=== PATIENT | male | born 1990 | race Caucasian/White ===

== ENCOUNTER 2017-02-22 11:55 | Emergency (ER) | payer OTHER ==
[2017-02-22 12:01] VITALS: BP 118/59; PULSE 90; RESP 20; TEMP 98.3
--- NOTE | 2017-02-22 12:50 | ED ---
Anxiety HPI - General Source: patient, RN notes reviewed Mode of arrival: EMS Limitations: no limitations <Dav Caruso - Last Filed: 02/22/17 14:01> <Cooper Joshua - Last Filed: 02/24/17 07:57> - General Chief Complaint: Anxiety Stated Complaint: Anxious Time Seen by Provider: 02/22/17 12:08 - History of Present Illness Initial Comments: 26-year-old male present emergency department with chief complaint of anxiety and agitation. 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 Patient states that he takes Seroquel and states it causes him to be very drowsy and states that he cannot stay awake for a while. He states that he fell asleep on the car ride but then woke up and he knew he was noted to have EMS fire department please around him. He states she's unsure what happened. Patient states that he remembers also been car and that he does abnormal things. Patient has no physical complaints at this time denies headache, dizziness, confusion, nausea, vomiting diarrhea constipation. Patient mother is here with patient states that he is I am drugs currently. Patient is very anxious the room. Patient states he has a history of heroin abuse denies any recent drug use. (Dav Caruso) - Related Data Home Medications: Home Medications Medication Instructions Recorded Confirmed Naltrexone HCl [Revia] 50 mg PO HS 02/22/17 02/22/17 PARoxetine [Paxil] 20 mg PO DAILY 02/22/17 02/22/17 Prazosin HCl 1 mg PO HS 02/22/17 02/22/17 QUEtiapine [SEROquel] 200 mg PO HS 02/22/17 02/22/17 Allergies/Adverse Reactions: Allergies Allergy/AdvReac Type Severity Reaction Status Date / Time No Known Allergies Allergy Verified 02/22/17 12:01 Review of Systems ROS Other: All systems not noted in ROS Statement are negative. <Dav Caruso - Last Filed: 02/22/17 14:01> ROS Other: All systems not noted in ROS Statement are negative. <Cooper Joshua - Last Filed: 02/24/17 07:57> ROS Statement: Those systems with pertinent positive or pertinent negative responses have been documented in the HPI. Past Medical History Past Medical History: No Reported History History of Any Multi-Drug Resistant Organisms: None Reported Past Surgical History: No Surgical Hx Reported Past Psychological History: Anxiety, PTSD Smoking Status: Current every day smoker Past Alcohol Use History: None Reported Past Drug Use History: Marijuana <Dav Caruso - Last Filed: 02/22/17 14:01> General Exam Limitations: no limitations General appearance: alert, in no apparent distress, anxious Head exam: Present: atraumatic, normocephalic, normal inspection Eye exam: Present: normal appearance, PERRL, EOMI. Absent: scleral icterus, conjunctival injection, periorbital swelling ENT exam: Present: normal exam, normal oropharynx, mucous membranes moist, TM's normal bilaterally, normal external ear exam Neck exam: Present: normal inspection, full ROM. Absent: tenderness, meningismus, lymphadenopathy Respiratory exam: Present: normal lung sounds bilaterally. Absent: respiratory distress, wheezes, rales, rhonchi, stridor Cardiovascular Exam: Present: regular rate, normal rhythm, normal heart sounds. Absent: systolic murmur, diastolic murmur, rubs, gallop, clicks GI/Abdominal exam: Present: soft, normal bowel sounds. Absent: distended, tenderness, guarding, rebound, rigid Neurological exam: Present: alert, oriented X3, CN II-XII intact Psychiatric exam: Present: anxious Skin exam: Present: warm, dry, intact, normal color. Absent: rash <Dav Caruso - Last Filed: 02/22/17 14:01> Medical Decision Making <Dav Caruso - Last Filed: 02/22/17 14:01> <Cooper Joshua - Last Filed: 02/24/17 07:57> - Medical Decision Making 26-year-old male present emergency department via EMS for agitation anxiety. Patient is alert and wants drugs at this time. Patient mother is here fluids such as possibility of the patient. Patient was evaluated by EPS and they suggest rehab again forearm. Patient is not suicidal or homicidal. Patient be discharged return parameters discussed. (Dav Caruso) 26-year-old male presenting with agitation. Patient's urine drug screen is positive. He was observed in the emergency department and evaluated by EPS. There is no suicidal or homicidal ideation. Patient will be discharged home, given rehab and primary care follow-up. Patient's mother is at bedside and is agreeable. (Cooper Joshua) - Lab Data Lab Results 02/22/17 Range/Units 12:46 Urine Opiates Screen Detected H (NotDetected) Ur Oxycodone Screen Not Detected (NotDetected) Urine Methadone Screen Not Detected (NotDetected) Ur Propoxyphene Screen Not Detected (NotDetected) Ur Barbiturates Screen Not Detected (NotDetected) U Tricyclic Antidepress Not Detected (NotDetected) Ur Phencyclidine Scrn Not Detected (NotDetected) Ur Amphetamines Screen Not Detected (NotDetected) U Methamphetamines Scrn Not Detected (NotDetected) U Benzodiazepines Scrn Not Detected (NotDetected) Urine Cocaine Screen Detected H (NotDetected) U Marijuana (THC) Screen Detected H (NotDetected) Disposition Time of Disposition: 14:02 <Dav Caruso - Last Filed: 02/22/17 14:01> <Cooper Joshua - Last Filed: 02/24/17 07:57> Clinical Impression: Polysubstance abuse, Acute anxiety Disposition: HOME SELF-CARE Condition: Stable Instructions: Polysubstance Abuse (ED) Additional Instructions: Please return to the Emergency Department if symptoms worsen or any other concerns. Referrals: Leodan Pederson MD [Primary Care Provider] - 1-2 days
== END 2017-02-22 14:09 | disposition home or self-care (01) ==
LOC: EC 11:55
DX: F19.10 Other psychoactive substance abuse, uncomplicated (principal); F41.9 Anxiety disorder, unspecified; F43.10 Post-traumatic stress disorder, unspecified; Z87.898 Personal history of other specified conditions; Z79.891 Long term (current) use of opiate analgesic; Z79.899 Other long term (current) drug therapy; F17.200 Nicotine dependence, unspecified, uncomplicated
CPT/HCPCS: 80306; 82075; 99284